=== PATIENT | female | born 1965 | race African-American/Black ===

== ENCOUNTER 2017-04-12 10:48 | Emergency (ER) | payer MEDICAID ==
[~2017-04-12] VITALS: Ht 170.2 cm; Wt 80.0 kg
[~2017-04-12 10:48] MED LIST: ALBU05 IH; AMLO5TAB4 PO; BENA20TA77 PO; CLON0.1T PO; DIPH25CA83 PO; PROT20 PO
[2017-04-12] MEDS ORDERED: SODIUM CHLORIDE 0.9% 1,000 ML IV ONE (11:52)
[2017-04-12] MEDS ORDERED: METOCLOPRAMIDE HCL 10MG/2ML VIAL IV ONE (12:00)
[2017-04-12] MEDS ORDERED: LORAZEPAM 2MG/ML CPJ IV ONE (12:00)
[2017-04-12] MEDS ORDERED: DIPHENHYDRAMINE 50MG/ML VIAL IV ONE (12:15)
[2017-04-12] MEDS ORDERED: DIPHENHYDRAMINE 50MG/ML VIAL ONE (12:20)
[2017-04-12 13:13] LABS: BASOPHILS % 0.9 % (0.0-2.0); EOSINOPHILS % 2.6 % (0.0-5.0); HEMATOCRIT. 36.5 % (36.0-48.0); HEMOGLOBIN. 11.7 g/dL (12.0-16.0); LYMPHOCYTES % 31.4 % (20.0-50.0); MEAN CORPUSCULAR HEMOGLOBIN 25.7 pg (28.0-32.0); MEAN CORPUSCULAR VOLUME 80.1 fL (81.0-99.0); MEAN PLATELET VOLUME 8.8 fl (7.4-10.4); NEUTROPHILS % 58.1 % (40.0-76.0); PLATELET 257 x1000/uL (130-400); RED BLOOD CELL COUNT 4.56 mill/uL (4.2-5.4); RED CELL DISTRIBUTION WIDTH 16.6 % (11.6-14.6)
[2017-04-12 13:15] LABS: GLUCOSE URINE NEGATIVE (NEGATIVE); KETONES URINE NEGATIVE (NEGATIVE); NITRITE URINE NEGATIVE (NEGATIVE); OCCULT BLOOD URINE 3+ (NEGATIVE); PROTEIN URINE 2+ (NEGATIVE); SPECIFIC GRAVITY URINE 1.019 (1.005-1.030)
[2017-04-12 13:20] LABS: CHLORIDE 106 mEq/L (98-107)
[2017-04-12 13:27] LABS: CLARITY URINE CLOUDY (CLEAR); COLOR URINE BLOODY (YELLOW); LEUKOCYTE ESTERASE URINE NEGATIVE (NEGATIVE)
[2017-04-12 13:30] LABS: CARBON DIOXIDE 27 mEq/L (21-32); ETHANOL BLOOD < 10 mg/dL
[2017-04-12 13:43] LABS: *AMPHETAMINES SCREEN URINE NEGATIVE (NEGATIVE); *BARBITURATES SCREEN URINE NEGATIVE (NEGATIVE); *BENZODIAZEPINES SCREEN URINE NEGATIVE (NEGATIVE); *COCAINE SCREEN URINE NEGATIVE (NEGATIVE); CANNABINOID URINE SCREEN NEGATIVE (NEGATIVE); METHADONE URINE SCREEN NEGATIVE (NEGATIVE); OPIATES URINE SCREEN NEGATIVE (NEGATIVE); PHENCYCLIDINE URINE SCREEN NEGATIVE (NEGATIVE)
[2017-04-12 14:54] VITALS: BP 123/80
[2017-04-12] MEDS ORDERED: DIPHENHYDRAMINE 25MG CAPSULE PO NR (15:00)
[2017-04-12] MEDS ORDERED: LORAZEPAM 1MG TABLET PO NR (15:00)
== END 2017-04-12 15:41 | disposition home or self-care (01) ==
LOC: ER 10:48
DX: F41.1 Generalized anxiety disorder (principal); N39.0 Urinary tract infection, site not specified; R31.0 Gross hematuria; Z76.5 Malingerer [conscious simulation]; I10 Essential (primary) hypertension; J44.9 Chronic obstructive pulmonary disease, unspecified; Z63.79 Other stressful life events affecting family and household; Z62.820 Parent-biological child conflict; Z88.8 Allergy status to other drugs, medicaments and biological substances; Z88.0 Allergy status to penicillin; Z88.6 Allergy status to analgesic agent; Z88.5 Allergy status to narcotic agent; Z79.899 Other long term (current) drug therapy; Z86.73 Personal history of transient ischemic attack (TIA), and cerebral infarction without residual deficits
CPT/HCPCS: 36415; 80053; 80305; 81001; 81025; 83690; 85025; 96361; 96374; 96375; 99285; G0482; J1200; J2060; J7030; Z7610; J2765; Q0163